=== PATIENT | female | born 1950 | race Caucasian/White ===

== ENCOUNTER → 2016-03-05 | Outpatient (CLI) | payer MEDICARE ==
--- NOTE | 2016-03-07 07:47 | MM ---
Reason for exam: clinical finding. Last mammogram was performed 2 years and 3 months ago. History: Patient is postmenopausal. Took estrogen for 1 year beginning at age 54. Physical Findings: Nurse Summary: less than 1cm nodule in the left breast at 12-1 o'clock (nurse kp). [facility] Diagnostic Mammo w CAD ZACK Bilateral CC, MLO, and XCCL view(s) were taken. Prior study comparison: December 01, 2013, bilateral MG screening mammo w CAD. July 11, 2012, bilateral digital screening mammo w/CAD. The breast tissue is heterogeneously dense. This may lower the sensitivity of mammography. Finding: There are typically benign round, diffuse/scattered calcifications in both breasts. No significant changes in finding since December 01, 2013 and July 11, 2012. ASSESSMENT: Benign, BI-RAD 2 RECOMMENDATION: Routine screening mammogram of both breasts in 1 year. Manage patient on a clinical basis.
--- NOTE | 2016-03-07 07:49 | USB ---
Reason for exam: additional evaluation requested from abnormal screening. History: Patient is postmenopausal. Took estrogen for 1 year beginning at age 54. US Breast LT Left breast ultrasound including all four quadrants, the retroareolar region and axilla demonstrates no cystic or solid lesion seen. These results were verbally communicated with the patient and result sheet given to the patient on 03/05/16. ASSESSMENT: Negative, BI-RAD 1 RECOMMENDATION: Routine screening mammogram of both breasts in 1 year.
== END | disposition home or self-care (01) ==
LOC: RADMAMWWP 14:18
PROVIDERS: ATTEND Family Medicine
DX: N63 Unspecified lump in breast (principal)
CPT/HCPCS: 76641; G0204